=== PATIENT | male | born 1985 | race Native Hawaiian/Other Pacific Islander ===

== ENCOUNTER 2017-08-08 13:02 | Emergency (ER) | payer OTHER ==
[~2017-08-08] VITALS: Ht 175.3 cm; Wt 81.6 kg
[2017-08-08 16:50] LABS: PLATELET COUNT 383 K/uL (142-355)
== END 2017-08-08 17:20 | disposition home or self-care (01) ==
LOC: ED 13:02
PROVIDERS: Internal Medicine
DX: F41.8 Other specified anxiety disorders (principal); J40 Bronchitis, not specified as acute or chronic
CPT/HCPCS: 36415; 85027; 99283